=== PATIENT | male | born 1985 | race Caucasian/White ===

== ENCOUNTER 2025-01-23 22:02 | Emergency (ER) | payer MEDICAID ==
[~2025-01-23] VITALS: Ht 185.4 cm; Wt 80.7 kg
[2025-01-23] MEDS ORDERED: CLINDAMYCIN 900MG/D5W 100ML IVPB **ER PYXIS ONLY IJ ONE (22:54)
[2025-01-23 23:09] LABS: PLATELET COUNT (AUTO) 303 K/uL (152-348); RED BLOOD CELL COUNT(AUTO) 4.96 MIL/uL (4.06-5.63); RED CELL DISTRIBUTION WIDTH 12.6 % (12.1-16.2); WHITE BLOOD COUNT (AUTO) 14.0 K/uL (3.6-10.2)
[2025-01-23] MEDS: IV NS 1000 ML 1,000 ML IV ONE (23:10)
[2025-01-23] MEDS: CLINDAMYCIN PHOSPHATE IV 900 MG in IV DEXTROSE 5% 100 ML IV ONE (23:10)
[2025-01-23] MEDS ORDERED: KETOROLAC TROMETHAMINE 30 MG INJ ONE (23:11)
[2025-01-23 23:15] LABS: CREATININE 0.9 mg/dL (0.6-1.3); SODIUM SERUM 140.0 mmol/L (136-145); UREA NITROGEN, BLOOD 13.0 mg/dL (7-18)
[2025-01-23] MEDS: KETOROLAC TROMETHAMINE 30 MG INJ IVP ONE (23:18)
[2025-01-23] MEDS ORDERED: IOHEXOL 300MG/ML 100 ML INFUS..BTL ONE (23:46)
[2025-01-23] MEDS ORDERED: SWABABLE VALVE TRANSFER SET EA MC ONE (23:46)
[2025-01-23] MEDS ORDERED: IV NORMAL SALINE 250 ML IV ONE (23:48)
[2025-01-24] MEDS ORDERED: MORPHINE SULFATE 4 MG/1 ML DISP.SYRIN ONE (04:21)
[2025-01-24] MEDS: MORPHINE SULFATE 4 MG/1 ML DISP.SYRIN IV ONE (04:44)
[2025-01-24] MEDS ORDERED: CLINDAMYCIN 900MG/D5W 100ML IVPB **ER PYXIS ONLY IJ ONE (06:21)
[2025-01-24] MEDS: CLINDAMYCIN PHOSPHATE IV 900 MG in IV DEXTROSE 5% 100 ML IV ONE (06:48)
[2025-01-24] MEDS ORDERED: KETOROLAC TROMETHAMINE 15 MG INJ ONE (07:37)
[2025-01-24] MEDS: KETOROLAC TROMETHAMINE 15 MG INJ IVP ONE (07:45)
[2025-01-24 08:24] VITALS: BP 129/75; O2SAT 97
== END 2025-01-24 09:26 | disposition short-term general hospital (02) ==
LOC: ER 22:02
DX: K04.7 Periapical abscess without sinus (principal); M27.2 Inflammatory conditions of jaws; F17.210 Nicotine dependence, cigarettes, uncomplicated; R13.10 Dysphagia, unspecified
CPT/HCPCS: 36415; 70487; 85025; A4606; A4663; J1885; J2270; J3490; J7040; Q9967